=== PATIENT | female | born 1995 | race Caucasian/White ===

== ENCOUNTER 2019-02-13 22:04 | Emergency (ER) | payer BC ==
[2019-02-13 22:28] LABS: #Basophils 0.1 thou/uL (0.0-0.2); #Eosinphils 0.2 thou/uL (0.0-0.7); #Lymphocytes 3.3 thou/uL (1.20-3.40); #Monocytes 0.8 thou/uL (0.11-0.59); #Neutrophils 8.2 thou/uL (1.40-6.50); %Basophils 0.7 % (0.0-1.0); %Eosinophils 1.4 % (0.0-10.0); %Lymphocytes 26.2 % (21.0-51.0); %Monocytes 6.2 % (0.0-10.0); %Neutrophils 65.5 % (42.0-75.0); Hemoglobin 14.1 g/dL (12.0-16.0); Mean Corpuscular HGB CONC 33.9 g/dL (32.0-36.0); Mean Corpuscular Hemoglobin 29.1 pg (27.0-31.0); Mean Corpuscular Volume 85.7 fL (78.0-98.0); Mean Platelet Volume 7.5 fL (7.4-10.4); Platelet Count 359 thou/uL (130-400); RBC Distribution Width 12.7 % (11.5-14.5); Red Blood Cell (RBC) Count 4.83 mill/uL (4.20-5.40); White Blood Cell (WBC) Count 12.5 thou/uL (4.8-10.8)
--- NOTE | 2019-02-13 22:43 | RAD ---
EXAM: Chest one view: HISTORY: Chest tightness and shortness of breath, chest pain COMPARISON: 10/06/2009 FINDINGS: Heart size: Within normal limits. Lungs: Clear of acute process. No evidence for confluent pneumonia, pleural effusion, acute edema, or pneumothorax, or other signifi cant acute process. IMPRESSION: No significant acute intrathoracic disease.
[2019-02-13 22:47] LABS: ALT (SGPT) 13 U/L (8-55); AST (SGOT) 15 U/L (5-34); Albumin 4.6 g/dL (3.5-5.0); Alkaline Phosphatase 106 U/L (40-110); Anion Gap 15 mmol/L (10-20); BUN (Urea Nitrogen) 7 mg/dL (7.0-18.7); Bilirubin, Total 0.3 mg/dL (0.2-1.2); CK (CPK) 154 U/L (29-168); Calc. Creatinine Clearance 0 mL/min (70-130); Calcium 9.6 mg/dL (7.8-10.44); Carbon Dioxide 21 mmol/L (22-29); Chloride 106 mmol/L (98-107); Estimated GFR-MDRD Greater than 90; Globulin 2.8 g/dL (2.4-3.5); Glucose 104 mg/dL (70-105); Potassium 3.6 mmol/L (3.5-5.1); Protein, Total 7.4 g/dL (6.0-8.3); Sodium 138 mmol/L (136-145)
[2019-02-13] MEDS ORDERED: Lorazepam 1 MG TAB ONE (23:43)
== END 2019-02-13 23:59 | disposition home or self-care (01) ==
LOC: ERS 22:04
DX: R07.89 Other chest pain (principal); F41.9 Anxiety disorder, unspecified; F31.9 Bipolar disorder, unspecified; Z79.899 Other long term (current) drug therapy
CPT/HCPCS: 36415; 71045; 80053; 82550; 84484; 85025; 93005

== ENCOUNTER 2024-02-09 10:56 | Emergency (ER) | payer BC, SELFPAY ==
[2024-02-09 11:30] LABS: #Basophils 0.05 10x3/uL (0.0-0.2); %Basophils 0.7 % (0.0-1.0); %Eosinophils 1.3 % (0.0-10.0); %Lymphocytes 23.8 % (21.0-51.0); %Neutrophils 66.9 % (42.0-75.0); Hematocrit 46.3 % (36.0-47.0); Hemoglobin 15.2 g/dL (12.0-16.0); Mean Corpuscular HGB CONC 32.8 g/dL (32.0-36.0); Mean Corpuscular Hemoglobin 28.7 pg (27.0-31.0); Mean Corpuscular Volume 87.4 fL (78.0-98.0); Platelet Count 340 10x3/uL (130-400); RBC Distribution Width 13.4 % (11.5-14.5)
[2024-02-09 11:34] LABS: BHCG - Serum Negative (NEGATIVE); Pregs Control Background? CLEAR/WHITE (CLR/WHITE); Pregs Control Bar Appear? YES (CONTROL BAR)
[2024-02-09] MEDS ORDERED: methylPREDNISolone Sod Succ 40 MG VIAL ONE (11:34)
[2024-02-09] MEDS ORDERED: diphenhydrAMINE 50 MG/ML VIAL ONE (11:34)
[2024-02-09] MEDS ORDERED: Famotidine/PF 20 mg/2ml Vial ONE (11:35)
[2024-02-09 11:49] LABS: ALT (SGPT) 13 U/L (8-55); AST (SGOT) 15 U/L (5-34); Albumin 4.3 g/dL (3.5-5.0); Alkaline Phosphatase 75 U/L (40-110); Anion Gap 12 mmol/L (10-20); BUN (Urea Nitrogen) 8 mg/dL (7.0-18.7); Bilirubin, Total 0.4 mg/dL (0.2-1.2); Calc. Creatinine Clearance 0 mL/min (70-130); Calcium 9.8 mg/dL (7.8-10.44); Carbon Dioxide 23 mmol/L (22-29); Chloride 106 mmol/L (98-107); Estimated GFR 94; Globulin 3.6 g/dL (2.4-3.5); Glucose 94 mg/dL (70-105); Potassium 4.4 mmol/L (3.5-5.1); Protein, Total 7.9 g/dL (6.0-8.3); Sodium 137 mmol/L (136-145)
[2024-02-09] MEDS ORDERED: Metoclopramide HCl 10 MG (2 mL) VIAL ONE (12:01)
== END 2024-02-09 14:40 | disposition home or self-care (01) ==
LOC: ERS 10:56
DX: F07.81 Postconcussional syndrome (principal); W01.198A Fall on same level from slipping, tripping and stumbling with subsequent striking against other object, initial encounter; Y93.89 Activity, other specified
CPT/HCPCS: 36415; 70496; 70498; 72125; 80053; 84703; 85025; 96374; 96375; J1200; J2765; J2919; J3490